=== PATIENT | female | born 1945 | race Caucasian/White ===

== ENCOUNTER 2016-07-30 10:59 | Emergency (ER) | payer BC, MEDICARE ==
[~2016-07-30] VITALS: Ht 160 cm; Wt 74.3 kg
[~2016-07-30 10:59] MED LIST: ACET650T59 PO; ASPI-611 PO; CALC-494 PO; FISH1CAP29 PO; FLAX100016 PO; GLUC1CAP25 PO; MULT1CAP47 PO; ONDA4TAB7 PO; PROM25SU44 RC
[2016-07-30 11:02] VITALS: Ht 160 cm; Wt 74.3 kg
--- OUTSIDE RECORDS SUMMARY | 2016-07-30 11:03 | XMS REPORT | Referral Summary ---
Author Author [facility], Family Medicine Organization [facility] Address Unknown Phone Unavailable Care Team Providers Care Volleyball Assembler Name Role Phone Nadir Mena Primary Care Physician [phone] Encounter Date(s): 06/23/16 - 06/23/16 [facility] [place], [address] [place] [address] Discharge Diagnosis: Acute recurrent maxillary sinusitis Discharge Disposition: 01-Home or Self Care Attending Physician: Concepcion Mckeon APRN Admitting Physician: Concepcion Mckeon APRN Vital Signs Most recent to 1 oldest [Reference Range]: Temperature Tympanic 36.7 degC [36.6-38.1 degC] (06/23/16 10:00 AM) Peripheral Pulse 82 bpm Rate [60-100 bpm] (06/23/16 10:00 AM) Blood Pressure 136/80 mmHg [90-140/60-90 mmHg] (06/23/16 10:00 AM) SpO2 96 % (06/23/16 10:00 AM) Problem List Condition Effective Dates Status Health Status Informant Bronchitis(Confirmed Active ) Chest Active pain(Confirmed) Chicken Active pox(Confirmed) T12 compression Active fracture(Confirmed) Edema(Confirmed) Active Migraine Active headaches(Confirmed) 1 Mitral Active regurgitation(Confir med) Obesity(Confirmed) Active patient Osteoarthritis(Confi Active rmed) Osteoporosis(Confirm Active ed) Palpitations(Confirm Active ed) Postmenopausal(Confi Active rmed) Mild pulmonary Active hypertension(Confirm ed) Benign skin lesion Active of forehead(Confirmed) 1associated with Allergies, Adverse Reactions, Alerts Substance Reaction Severity Status HYDROcodone Active oxyCODONE Active Medications Aspir 81 mg, Oral, Daily, 0 Refill(s) Start Date: 10/13/13 Status: Ordered atorvastatin 10 mg oral tablet 10 mg 1 tabs, Oral, Daily, # 90 tabs, 0 Refill(s), Pharmacy: [facility] # [id number], 1 tabs Oral Daily Start Date: 05/08/16 Status: Ordered Augmentin 875 mg-125 mg oral tablet 1 tabs, Oral, BID, X 10 days, # 20 tabs, 0 Refill(s), Pharmacy: [facility] #[id number] Start Date: 06/23/16 Stop Date: 07/03/16 Status: Ordered Calcium 600+D tabs, Oral, TID, 0 Refill(s) Start Date: 10/13/13 Status: Ordered Fish Oil 1000 mg oral capsule 1 caps, Oral, Daily, 0 Refill(s) Start Date: 10/13/13 Status: Ordered Flax Seed Oil 1 caps, Oral, Daily, 0 Refill(s) Start Date: 10/13/13 Status: Ordered ibuprofen 200 mg oral tablet 1 tabs, Oral, q6hr, as needed for fever, # 120 tabs, 0 Refill(s) Start Date: 10/13/13 Status: Ordered multivitamins oral capsule 1 caps, Oral, Daily, # 30 caps, 0 Refill(s) Start Date: 10/13/13 Status: Ordered triamterene-hydrochlorothiazide 37.5 mg-25 mg oral capsule See Instructions, TAKE ONE CAPSULE BY MOUTH DAILY, # 90 caps, 1 Refill(s), eRx: [facility] #[id number] Start Date: 05/05/16 Status: Ordered Results No data available for this section Immunizations Given and Recorded Vaccine Date Status Refusal Reason tetanus/diphth/pertuss (Tdap) adult/adol 01/11/13 Recorded pneumococcal 13-valent conjugate vaccine1 01/11/13 Given pneumococcal 23-polyvalent vaccine 01/11/13 Given tetanus-diphth toxoids (Td) adult/adol 07/07/95 Recorded zoster vaccine live 12/18/09 Recorded 1Result Comment: [01/10/2015 Uncharted] Uploaded in Error - CC Procedures Procedure Date Related Diagnosis Body Site Knee replacement - L TKA 03/12/11 Kyphoplasty1 09/2009 S/p breast biopsy 1986 Back surgery Carpal tunnel release Cataract extraction S/p bunionectomy S/P tubal ligation 1sledding accident 04/2009 Social History Social History Type Response Smoking Status Never smoker Assessment and Plan Extracted from: Title: Office Visit Note Author: Concepcion Mckeon APRN Date: 06/23/16 Assessment/Plan Acute recurrent maxillary sinusitis Will begin Augmentin 875/125 mgtwice a day for 10 days. Mucinex for congestion. Warm compresses to the sinuses. Drink plenty of fluids. Note was written for work. Call or return if worsening symptoms chills or fever. Ordered: Office Visit Level 3 Est 80592
--- OUTSIDE RECORDS SUMMARY | 2016-07-30 11:03 | XMS REPORT | Referral Summary ---
Author Organization Unknown Address Unknown Phone Unavailable Care Team Providers Care Applications Project Manager Name Role Phone Nadir Mena Primary Care Physician [phone] Encounter VC Date(s): 08/07/14 - 08/07/14 [facility], [place], Family [address] [place] [id number] Discharge Diagnosis: Mitral regurgitation Discharge Diagnosis: Mild pulmonary hypertension Discharge Diagnosis: Benign skin lesion of forehead Discharge Diagnosis: Osteoarthritis Discharge Disposition: Home or Self Care Attending Physician: Artur Mena MD Admitting Physician: Artur Mena MD Vital Signs Most recent to 1 oldest [Reference Range]: Peripheral Pulse 84 bpm Rate [60-100 bpm] (08/07/14 2:27 PM) Blood Pressure 128/80 mmHg [90-140/60-90 mmHg] (08/07/14 2:27 PM) Problem List Condition Effective Dates Status Health Status Informant Bronchitis(Confirmed Active ) Chest Active pain(Confirmed) Chicken Active pox(Confirmed) T12 compression Active fracture(Confirmed) Edema(Confirmed) Active Migraine Active headaches(Confirmed) 1 Mitral Active regurgitation(Confir med) Osteoarthritis(Confi Active rmed) Osteoporosis(Confirm Active ed) Palpitations(Confirm Active ed) Postmenopausal(Confi Active rmed) Mild pulmonary Active hypertension(Confirm ed) Benign skin lesion Active of forehead(Confirmed) 1associated with Allergies, Adverse Reactions, Alerts Substance Reaction Severity Status HYDROcodone Active oxyCODONE Active Medications Aspir 81 mg, Oral, Daily, 0 Refill(s) Start Date: 10/13/13 Status: Ordered Calcium 600+D tabs, Oral, TID, 0 Refill(s) Start Date: 10/13/13 Status: Ordered Fish Oil 1000 mg oral capsule 1 caps, Oral, Daily, 0 Refill(s) Start Date: 10/13/13 Status: Ordered Flax Seed Oil 1 caps, Oral, Daily, 0 Refill(s) Start Date: 10/13/13 Status: Ordered glucosamine 500 mg oral tablet 1 tabs, Oral, TID, # 90 tabs, 0 Refill(s) Start Date: 10/13/13 Status: Ordered ibuprofen 200 mg oral tablet 1 tabs, Oral, q6hr, as needed for fever, # 120 tabs, 0 Refill(s) Start Date: 10/13/13 Status: Ordered multivitamins oral capsule 1 caps, Oral, Daily, # 30 caps, 0 Refill(s) Start Date: 10/13/13 Status: Ordered triamterene-hydrochlorothiazide 37.5 mg-25 mg oral capsule See Instructions, TAKE 1 CAPSULE BY MOUTH EVERY DAY., # 90 tabs, 3 Refill(s), Pharmacy: [facility] #[id number] Special Instructions: TAKE 1 CAPSULE BY MOUTH EVERY DAY. Start Date: 08/07/14 Status: Ordered Results No data available for this section Immunizations Vaccine Date Refusal Reason tetanus/diphth/pertuss (Tdap) adult/adol 01/11/13 pneumococcal 13-valent conjugate vaccine 01/11/13 tetanus-diphth toxoids (Td) adult/adol 07/07/95 zoster vaccine live 12/18/09 Procedures Procedure Date Related Diagnosis Body Site Knee replacement - L TKA 03/12/11 Kyphoplasty1 09/2009 S/p breast biopsy 1986 Back surgery Carpal tunnel release Cataract extraction S/p bunionectomy S/P tubal ligation 1sledding accident 04/2009 Social History Social History Type Response Smoking Status Never smoker Assessment and Plan Extracted from: Title: Ambulatory Patient Education Author: Artur Mena MD Date: Family Medicine Arthritis, Nonspecific Arthritis is inflammation of a joint. This usually means pain, redness, warmth or swelling are present. One or more joints may be involved. There are a number of types of arthritis. Your caregiver may not be able to tell what type of arthritis you have right away. CAUSES The most common cause of arthritis is the wear and tear on the joint ( osteoarthritis ). This causes damage to the cartilage, which can break down over time. The knees, hips, back and neck are most often affected by this type of arthritis. Other types of arthritis and common causes of joint pain include: Sprains and other injuries near the joint. Sometimes minor sprains and injuries cause pain and swelling that develop hours later. Rheumatoid arthritis. This affects hands, feet and knees. It usually affects both sides of your body at the same time. It is often associated with chronic ailments, fever, weight loss and general weakness. Crystal arthritis. Gout and pseudo gout can cause occasional acute severe pain, redness and swelling in the foot, ankle, or knee. Infectious arthritis. Bacteria can get into a joint through a break in overlying skin. This can cause infection of the joint. Bacteria and viruses can also spread through the blood and affect your joints. Drug, infectious and allergy reactions. Sometimes joints can become mildly painful and slightly swollen with these types of illnesses. SYMPTOMS Pain is the main symptom. Your joint or joints can also be red, swollen and warm or hot to the touch. You may have a fever with certain types of arthritis, or even feel overall ill. The joint with arthritis will hurt with movement. Stiffness is present with some types of arthritis. DIAGNOSIS Your caregiver will suspect arthritis based on your description of your symptoms and on your exam. Testing may be needed to find the type of arthritis: Blood and sometimes urine tests. X-ray tests and sometimes CT or MRI scans. Removal of fluid from the joint (arthrocentesis ) is done to check for bacteria, crystals or other causes. Your caregiver (or a specialist) will numb the area over the joint with a local anesthetic, and use a needle to remove joint fluid for examination. This procedure is only minimally uncomfortable. Even with these tests, your caregiver may not be able to tell what kind of arthritis you have. Consultation with a specialist (playback operator ) may be helpful. TREATMENT Your caregiver will discuss with you treatment specific to your type of arthritis. If the specific type cannot be determined, then the following general recommendations may apply. Treatment of severe joint pain includes: Rest. Elevation. Anti-inflammatory medication (for example, ibuprofen) may be prescribed. Avoiding activities that cause increased pain. Only take sgkk-mdu-cuiqgdv or prescription medicines for pain and discomfort as recommended by your caregiver. Cold packs over an inflamed joint may be used for 10 to 15 minutes every hour. Hot packs sometimes feel better, but do not use overnight. Do not use hot packs if you are diabetic without your caregiver's permission. A cortisone shot into arthritic joints may help reduce pain and swelling. Any acute arthritis that gets worse over the next 1 to 2 days needs to be looked at to be sure there is no joint infection. Long-term arthritis treatment involves modifying activities and lifestyle to reduce joint stress jarring. This can include weight loss. Also, exercise is needed to nourish the joint cartilage and remove waste. This helps keep the muscles around the joint strong. HOME CARE INSTRUCTIONS Do not take aspirin to relieve pain if gout is suspected. This elevates uric acid levels. Only take mzlq-aka-hivdknq or prescription medicines for pain, discomfort or fever as directed by your caregiver. Rest the joint as much as possible. If your joint is swollen, keep it elevated. Use crutches if the painful joint is in your leg. Drinking plenty of fluids may help for certain types of arthritis. Follow your caregiver's dietary instructions. Try low-impact exercise such as: Swimming. Water aerobics. Biking. Walking. Morning stiffness is often relieved by a warm shower. Put your joints through regular fmvsr-ks-iupavk. SEEK MEDICAL CARE IF: You do not feel better in 24 hours or are getting worse. You have side effects to medications, or are not getting better with treatment. SEEK IMMEDIATE MEDICAL CARE IF: You have a fever. You develop severe joint pain, swelling or redness. Many joints are involved and become painful and swollen. There is severe back pain and/or leg weakness. You have loss of bowel or bladder control. Document Released: 05/21/2005 Document Revised: 07/05/2012 Document Reviewed: [facility] Patient Information 2014 [employer]. Mitral Valve Prolapse The mitral valve is located between the top and bottom parts of the heart on the left side. A mitral valve prolapse (MVP) is an abnormal bulging of 1 or both of the 2 mitral leaflets. The valve bulges into the top chamber (atrium ) of the heart when the bottom chamber (ventricle ) squeezes or contracts. MVP is more common in females. It is an inherited problem and is usually not found until adolescence. It is not harmful and rarely needs other treatment. PROBLEMS MAY INCLUDE: Chest pain. Palpitations. Anxiety. Panic attacks. Stroke, rarely. HOME CARE INSTRUCTIONS Taking antibiotics before a dental or other medical procedure is no longer routine. Consult with your caregiver. Exercise as your caregiver instructs. Discuss cardiac risk factors associated with MVP with your caregiver. SEEK IMMEDIATE MEDICAL CARE IF: You develop frequent episodes of chest pain or an irregular heartbeat. You faint or pass out. You have severe chest pain or shortness of breath. You develop palpitations with weakness or dizziness. You have difficulty with vision or swallowing or weakness or numbness on one side of your body. MAKE SURE YOU: Understand these instructions. Will watch your condition. Will get help right away if you are not doing well or get worse. Document Released: 04/10/2001 Document Revised: 07/05/2012 Document Reviewed: [facility] Patient Information 2014 [employer] [facility]. Immunology Eczema Eczema, also called atopic dermatitis, is a skin disorder that causes inflammation of the skin. It causes a red rash and dry, scaly skin. The skin becomes very itchy. Eczema is generally worse during the cooler winter months and often improves with the warmth of summer. Eczema usually starts showing signs in infancy. Some children outgrow eczema, but it may last through adulthood. CAUSES The exact cause of eczema is not known, but it appears to run in families. People with eczema often have a family history of eczema, allergies, asthma, or hay fever. Eczema is not contagious. Flare-ups of the condition may be caused by: Contact with something you are sensitive or allergic to. Stress. SIGNS AND SYMPTOMS Dry, scaly skin. Red, itchy rash. Itchiness. This may occur before the skin rash and may be very intense. DIAGNOSIS The diagnosis of eczema is usually made based on symptoms and medical history. TREATMENT Eczema cannot be cured, but symptoms usually can be controlled with treatment and other strategies. A treatment plan might include: Controlling the itching and scratching. Use gggt-olq-chsmcma antihistamines as directed for itching. This is especially useful at night when the itching tends to be worse. Use dhfq-siy-kqmztqz steroid creams as directed for itching. Avoid scratching. Scratching makes the rash and itching worse. It may also result in a skin infection (impetigo ) due to a break in the skin caused by scratching. Keeping the skin well moisturized with creams every day. This will seal in moisture and help prevent dryness. Lotions that contain alcohol and water should be avoided because they can dry the skin. Limiting exposure to things that you are sensitive or allergic to ( allergens ). Recognizing situations that cause stress. Developing a plan to manage stress. HOME CARE INSTRUCTIONS Only take uyeg-qqe-barxsrd or prescription medicines as directed by your health care provider. Do not use anything on the skin without checking with your health care provider. Keep baths or showers short (5 minutes) in warm (not hot) water. Use mild cleansers for bathing. These should be unscented. You may add nonperfumed bath oil to the bath water. It is best to avoid soap and bubble bath. Immediately after a bath or shower, when the skin is still damp, apply a moisturizing ointment to the entire body. This ointment should be a petroleum ointment. This will seal in moisture and help prevent dryness. The thicker the ointment, the better. These should be unscented. Keep fingernails cut short. Children with eczema may need to wear soft gloves or mittens at night after applying an ointment. Dress in clothes made of cotton or cotton blends. Dress lightly, because heat increases itching. A child with eczema should stay away from anyone with fever blisters or cold sores. The virus that causes fever blisters (herpes simplex ) can cause a serious skin infection in children with eczema. SEEK MEDICAL CARE IF: Your itching interferes with sleep. Your rash gets worse or is not better within 1 week after starting treatment. You see pus or soft yellow scabs in the rash area. You have a fever. You have a rash flare-up after contact with someone who has fever blisters. Document Released: 04/10/2001 Document Revised: 02/01/2014 Document Reviewed: [facility] Patient Information 2014 [facility]. No follow up information was provided. Extracted from: Title: Office Visit Note Author: Artur Mena MD Date: 08/07/14 Assessment/Plan Benign skin lesion of forehead suggest a trial of cortison-10 to the lesion and if not resolved consult Derm. Ordered: Office Visit Level 4 Est 31082 Mild pulmonary hypertension Continue with the current medications and a follow up with Dr Montgomery. Will get lab Ordered: Office Visit Level 4 Est 99870 Mitral regurgitation Ordered: Office Visit Level 4 Est 62163 Osteoarthritis Ordered: Office Visit Level 4 Est 47368 Orders: triamterene-hydrochlorothiazide, See Instructions, TAKE 1 CAPSULE BY MOUTH EVERY DAY., # 90 tabs, 3 Refill(s), Pharmacy: [facility] #[id number] Future Scheduled TestsReferral* Return to Clinic 02/21/14 12:59 PM Referrals to Other Providers Referred by: Tk Whitehead MD
--- OUTSIDE RECORDS SUMMARY | 2016-07-30 11:03 | XMS REPORT | Referral Summary ---
Author Author [facility], Family Medicine Organization [facility] Address Unknown Phone Unavailable Care Team Providers Care Manager Production Name Role Phone Nadir Mena Primary Care Physician [phone] Encounter VC Date(s): 12/26/14 - 12/26/14 [facility] [place], [address] [place] [address] Discharge Diagnosis: Acute maxillary sinusitis Discharge Disposition: 01-Home or Self Care Attending Physician: Concepcion Mckeon APRN Admitting Physician: Concepcion Mckeon APRN Referring Physician: Artur Mena MD Vital Signs Most recent to 1 oldest [Reference Range]: Temperature Tympanic 36.7 degC [36.6-38.1 degC] (12/26/14 10:41 AM) Peripheral Pulse 75 bpm Rate [60-100 bpm] (12/26/14 10:41 AM) Blood Pressure 126/68 mmHg [90-140/60-90 mmHg] (12/26/14 10:41 AM) SpO2 98 % (12/26/14 10:41 AM) Problem List Condition Effective Dates Status [...] DAY., # 90 tabs, 3 Refill(s), Pharmacy: [facility] #[id number] Start Date: 08/07/14 Status: Ordered Results No data available for this section Immunizations Vaccine Date Refusal Reason tetanus/diphth/pertuss (Tdap) adult/adol 01/11/13 pneumococcal 23-polyvalent vaccine 01/11/13 tetanus-diphth toxoids (Td) adult/adol 07/07/95 zoster vaccine live 12/18/09 Procedures Procedure Date Related Diagnosis Body Site Knee replacement - L TKA 03/12/11 Kyphoplasty1 09/2009 S/p breast biopsy 1986 Back surgery Carpal tunnel release Cataract extraction S/p bunionectomy S/P tubal ligation 1sledding accident 04/2009 Social History Social History Type Response Smoking Status Never smoker Assessment and Plan No data available for this section
--- OUTSIDE RECORDS SUMMARY | 2016-07-30 11:03 | XMS REPORT | Referral Summary ---
Author Author [facility], Sleep [facility] Organization [facility], [place] Address Unknown Phone Unavailable Care Team Providers Care Cafe Lead Name Role Phone Nadir Mena Primary Care Physician [phone] Encounter VC Date(s): 01/18/15 - 01/18/15 [facility], [facility] [address] [facility], [address] [address] Discharge Disposition: 01-Home or Self Care Attending Physician: Julius Mitchell MD Admitting Physician: Julius Mitchell MD Referring Physician: Julius Mitchell MD Vital Signs No data available for this section Problem List Condition Effective Dates Status Health [...] 0 Refill(s) Start Date: 10/13/13 Status: Ordered Promethazine VC with Codeine oral syrup See Instructions, as needed for cough, 5-10 mL Oral q4-6hr, # 240 mL, 0 Refill(s ) Start Date: 01/02/15 Status: Ordered triamterene-hydrochlorothiazide 37.5 mg-25 mg oral capsule See Instructions, TAKE 1 CAPSULE BY MOUTH EVERY DAY., # 90 tabs, 3 Refill(s), Pharmacy: [facility] #[id number] Start Date: 08/07/14 Status: Ordered Results No [...] Smoking Status Never smoker Assessment and Plan Future Scheduled TestsReferral* Return to Clinic 02/21/14 12:59 PM Referrals to Other Providers Referred by: Tk Whitehead MD
--- OUTSIDE RECORDS SUMMARY | 2016-07-30 11:03 | XMS REPORT | Referral Summary ---
Author Author [facility], Sleep [place] Organization [facility], [place] Address Unknown Phone Unavailable Care Team Providers Care Blade Operator Name Role Phone Nadir Mena Primary Care Physician [phone] Encounter VC Date(s): 01/18/15 - 01/18/15 [facility], [facility] [address] [facility], [address] [address] Discharge Disposition: 01-Home or Self Care Attending [...] DAY., # 90 tabs, 3 Refill(s), Pharmacy: [facility] #[id number] Start Date: 08/07/14 Status: Ordered Results No [...]
--- OUTSIDE RECORDS SUMMARY | 2016-07-30 11:04 | XMS REPORT | Referral Summary ---
Author Author [facility], [facility] Medicine Organization [facility] Address Unknown Phone Unavailable Care Team Providers Care Oim Consultant Name Role Phone Nadir Mena Primary Care Physician [phone] Encounter VC Date(s): 05/15/16 - 05/15/16 [facility], [address] [place] [address]- Discharge Diagnosis: CVA tenderness Discharge Disposition: 01-Home or Self Care Attending Physician: Concepcion Mckeon APRN Vital Signs Most recent to 1 oldest [Reference Range]: Temperature Tympanic 36.5 degC [36.6-38.1 degC] *LOW* (05/15/16 10:57 AM) Peripheral Pulse 72 bpm Rate [60-100 bpm] (05/15/16 10:57 AM) Blood Pressure 130/80 mmHg [90-140/60-90 mmHg] (05/15/16 10:57 AM) Problem List Condition Effective Dates Status [...] Daily, # 90 tabs, 0 Refill(s), [facility] [id number], 1 tabs Oral Daily Start Date: 05/08/16 Status: Ordered Calcium 600+D tabs, Oral, TID, 0 Refill(s) Start Date: 10/13/13 Status: Ordered Cipro 500 mg oral tablet 500 mg 1 tabs, Oral, q12hr, X 10 days, # 20 tabs, 0 Refill(s), Pharmacy: [facility] #[id number], 1 tabs Oral q12hr,x10 days Start Date: 05/15/16 Stop Date: 05/25/16 Status: Ordered Fish Oil 1000 mg oral capsule 1 caps, Oral, Daily, 0 Refill(s) Start Date: 10/13/13 Status: Ordered Flax Seed Oil 1 caps, Oral, Daily, 0 Refill(s) Start Date: 10/13/13 Status: Ordered ibuprofen 200 mg oral tablet 1 tabs, Oral, q6hr, as needed for fever, # 120 tabs, 0 Refill(s) Start Date: 10/13/13 Status: Ordered Mobic 7.5 mg oral tablet 7.5 mg 1 tabs, Oral, BID, # 30 tabs, 0 Refill(s), Pharmacy: [facility] # [id number], 1 tabs Oral BID Start Date: 04/10/16 Status: Ordered multivitamins oral capsule 1 caps, Oral, Daily, # 30 caps, 0 Refill(s) Start Date: 10/13/13 Status: Ordered triamterene-hydrochlorothiazide 37.5 mg-25 mg oral capsule See Instructions, TAKE ONE CAPSULE BY MOUTH DAILY, # 90 caps, 1 Refill(s), eRx: [facility] #[id number] Start Date: 05/05/16 Status: Ordered Results Urinalysis Most recent to 1 oldest [Reference Range]: UA Color Yellow (05/15/16 11:13 AM) UA Appear Clear (05/15/16 11:13 AM) UA pH [5.0-8.0] 7.5 (05/15/16 11:13 AM) UA Leuk Est Pos 1+ [Negative] *ABN* (05/15/16 11:13 AM) UA Nitrite Negative [Negative] (05/15/16 11:13 AM) UA Protein Negative [Negative] (05/15/16 11:13 AM) UA Glucose Negative [Negative] (05/15/16 11:13 AM) UA Ketones Negative [Negative] (05/15/16 11:13 AM) UA Urobilinogen 0.2 mg/dL [<=1.0 mg/dL] (05/15/16 11:13 AM) UA Bili [Negative] Negative (05/15/16 11:13 AM) UA Blood [Negative] Negative (05/15/16 11:13 AM) UA Spec Grav 1.020 [1.003-1.030] (05/15/16 11:13 AM) Type Voided (05/15/16 11:13 AM) UA WBC [0-4] 2-5 (05/15/16 11:13 AM) UA RBC [0-2] 0-2 (05/15/16 11:13 AM) Epithelial Cells 5-10 (05/15/16 11:13 AM) UA Bacteria Rare (05/15/16 11:13 AM) Immunizations Given and Recorded Vaccine Date Status [...] from: Title: Office Visit Note Author: Concepcion Mckoen APRN Date: 05/15/16 Assessment/Plan CVA tenderness urinalysisUA ordered. Leukocyte Estrace noted. Will await culture, in the interim begin Cipro 500 mg twice a day for 10 days. Patient declined offer pain medication. Will use moist heatand Advil for pain relief. Drink plenty of fluids. Call if any problems in the interim especially fever or chills. Recheck on Thursdayunless problems sooner Ordered: Office Visit Level 3 Est 20418 Dysuria
--- OUTSIDE RECORDS SUMMARY | 2016-07-30 11:04 | XMS REPORT | Referral Summary ---
Author Author [facility] Organization [facility] Address Unknown Phone Unavailable Care Team Providers Care Precast Concrete Ironworker Name Role Phone Nadir Mena Primary Care Physician [phone] Encounter VC Date(s): 01/02/16 - 01/02/16 [facility], Cardiology [address] [place] [address] [place] [address]- Discharge Diagnosis: Mild mitral insufficiency Discharge Diagnosis: Mild pulmonary hypertension Discharge Disposition: 01-Home or Self Care Attending Physician: Bill Varghese MD Admitting Physician: Bill Varghese MD Referring Physician: Artur Mena MD Vital Signs Most recent to 1 oldest [Reference Range]: Peripheral Pulse 64 bpm Rate [60-100 bpm] (01/02/16 11:27 AM) Blood Pressure 124/72 mmHg [90-140/60-90 mmHg] (01/02/16 11:27 AM) Problem List Condition Effective Dates Status [...] CAPSULE BY MOUTH DAILY, # 90 caps, eRx: [facility] #[id number], TAKE ONE CAPSULE BY MOUTH DAILY Start Date: 11/05/15 Status: Ordered Results No data available for [...] Extracted from: Title: Office Visit Note Author: Bill Varghese MD Date: 01/02/16 Assessment/Plan 1.Mild pulmonary hypertension 2.Mild mitral insufficiency Discussion: This patient seems to be very stable. I didn't make any changes in her therapy. I advised a follow-up visitperhaps in a year although this is somewhat negotiable in view of her stability.
--- OUTSIDE RECORDS SUMMARY | 2016-07-30 11:04 | XMS REPORT | Referral Summary ---
Author Author [facility], [facility] Organization [facility] Address Unknown Phone Unavailable Care Team Providers Care Coldfusion Name Role Phone Nadir Mena Primary Care Physician [phone] Encounter VC Date(s): 12/06/15 - 12/06/15 [facility], [address] [place] [id number]- Discharge Diagnosis: Headache Discharge Disposition: 01-Home or Self Care Attending Physician: Moncho Trent PA-C Admitting Physician: Moncho Trent PA-C Vital Signs Most recent to 1 oldest [Reference Range]: Temperature Tympanic 36.7 degC [36.6-38.1 degC] (12/06/15 5:47 PM) Peripheral Pulse 66 bpm Rate [60-100 bpm] (12/06/15 5:47 PM) Blood Pressure 140/88 mmHg [90-140/60-90 mmHg] (12/06/15 5:47 PM) SpO2 96 % (12/06/15 5:47 PM) Problem List Condition Effective Dates Status [...] BY MOUTH DAILY, # 90 caps, eRx: [facility] #[id number], TAKE ONE CAPSULE BY MOUTH DAILY Start [...]
--- OUTSIDE RECORDS SUMMARY | 2016-07-30 11:04 | XMS REPORT | Referral Summary ---
Author Author [facility] Organization [facility] Address Unknown Phone Unavailable Care Team Providers Care Optical Fabrication Technician Name Role Phone Nadir Mena Primary Care Physician [phone] Encounter VC Date(s): 03/27/15 - 03/27/15 [facility], Family [address] [place] [address]- Discharge Diagnosis: Well woman exam with routine gynecological exam Discharge Disposition: 01-Home or Self Care Attending Physician: Concepcion Mckeon APRN Admitting Physician: Concepcion Mckeon APRN Vital Signs Most recent to 1 oldest [Reference Range]: Peripheral Pulse 78 bpm Rate [60-100 bpm] (03/27/15 3:09 PM) Blood Pressure 126/70 mmHg [90-140/60-90 mmHg] (03/27/15 3:09 PM) Problem List Condition Effective Dates Status [...] DAY., # 90 tabs, 3 Refill(s), Pharmacy: [facility] #[id number] Start Date: 08/07/14 Status: Ordered Results No [...]
--- OUTSIDE RECORDS SUMMARY | 2016-07-30 11:04 | XMS REPORT | Referral Summary ---
Author Author [facility] Organization [facility] Address Unknown Phone Unavailable Care Team Providers Care Family Preservation Worker Name Role Phone Nadir Mena Primary Care Physician [phone] Encounter VC Date(s): 07/12/15 - 07/12/15 [facility] [address] [place] [address] Discharge Diagnosis: Acute upper respiratory infection Discharge Disposition: 01-Home or Self Care Attending Physician: Viky Nazario PA-C Admitting Physician: Viky Nazario PA-C Vital Signs Most recent to 1 oldest [Reference Range]: Peripheral Pulse 70 bpm Rate [60-100 bpm] (07/12/15 1:58 PM) Respiratory Rate 16 br/min [14-20 br/min] (07/12/15 1:58 PM) Blood Pressure 128/72 mmHg [90-140/60-90 mmHg] (07/12/15 1:58 PM) Problem List Condition Effective Dates Status [...] DAY., # 90 tabs, 3 Refill(s), Pharmacy: [facility] #[id number] Start Date: 08/07/14 Status: Ordered Results No [...] Extracted from: Title: Ambulatory Patient Education Author: Viky Nazario PA-C Date : 07/12/15 ENT Upper Respiratory Infection Most upper respiratory infections (URIs) are a viral infection of the air passages leading to the lungs. A URI affects the nose, throat, and upper air passages. The most common type of URI is nasopharyngitis and is typically referred to as "the common cold." URIs run their course and usually go away on their own. Most of the time, a URI does not require medical attention, but sometimes a bacterial infection in the upper airways can follow a viral infection. This is called a secondary infection. Sinus and middle ear infections are common types of secondary upper respiratory infections. Bacterial pneumonia can also complicate a URI. A URI can worsen asthma and chronic obstructive pulmonary disease (COPD). Sometimes, these complications can require emergency medical care and may be life threatening. CAUSES Almost all URIs are caused by viruses. A virus is a type of germ and can spread from one person to another. RISKS FACTORS You may be at risk for a URI if: You smoke. You have chronic heart or lung disease. You have a weakened defense (immune) system. You are very young or very old. You have nasal allergies or asthma. You work in crowded or poorly ventilated areas. You work in health care facilities or schools. SIGNS AND SYMPTOMS Symptoms typically develop 23 days after you come in contact with a cold virus. Most viral URIs last 710 days. However, viral URIs from the influenza virus (flu virus) can last 1418 days and are typically more severe. Symptoms may include: Runny or stuffy (congested) nose. Sneezing. Cough. Sore throat. Headache. Fatigue. Fever. Loss of appetite. Pain in your forehead, behind your eyes, and over your cheekbones (sinus pain). Muscle aches. DIAGNOSIS Your health care provider may diagnose a URI by: Physical exam. Tests to check that your symptoms are not due to another condition such as: Strep throat. Sinusitis. Pneumonia. Asthma. TREATMENT A URI goes away on its own with time. It cannot be cured with medicines, but medicines may be prescribed or recommended to relieve symptoms. Medicines may help: Reduce your fever. Reduce your cough. Relieve nasal congestion. HOME CARE INSTRUCTIONS Take medicines only as directed by your health care provider. Gargle warm saltwater or take cough drops to comfort your throat as directed by your health care provider. Use a warm mist humidifier or inhale steam from a shower to increase air moisture. This may make it easier to breathe. Drink enough fluid to keep your urine clear or pale yellow. Eat soups and other clear broths and maintain good nutrition. Rest as needed. Return to work when your temperature has returned to normal or as your health care provider advises. You may need to stay home longer to avoid infecting others. You can also use a face mask and careful hand washing to prevent spread of the virus. Increase the usage of your inhaler if you have asthma. Do not use any tobacco products, including cigarettes, chewing tobacco, or electronic cigarettes. If you need help quitting, ask your health care provider. PREVENTION The best way to protect yourself from getting a cold is to practice good hygiene. Avoid oral or hand contact with people with cold symptoms. Wash your hands often if contact occurs. There is no clear evidence that vitamin C, vitamin E, echinacea, or exercise reduces the chance of developing a cold. However, it is always recommended to get plenty of rest, exercise, and practice good nutrition. SEEK MEDICAL CARE IF: You are getting worse rather than better. Your symptoms are not controlled by medicine. You have chills. You have worsening shortness of breath. You have brown or red mucus. You have yellow or brown nasal discharge. You have pain in your face, especially when you bend forward. You have a fever. You have swollen neck glands. You have pain while swallowing. You have white areas in the back of your throat. SEEK IMMEDIATE MEDICAL CARE IF: You have severe or persistent: Headache. Ear pain. Sinus pain. Chest pain. You have chronic lung disease and any of the following: Wheezing. Prolonged cough. Coughing up blood. A change in your usual mucus. You have a stiff neck. You have changes in your: Vision. Hearing. Thinking. Mood. MAKE SURE YOU: Understand these instructions. Will watch your condition. Will get help right away if you are not doing well or get worse. This information is not intended to replace advice given to you by your health care provider. Make sure you discuss any questions you have with your health care provider. Document Released: 10/07/2001 Document Revised: 01/30/2015 Document Reviewed: ExitCare Patient Information 2015 [employer] [facility]. No follow up information was provided. Extracted from: Title: Office Visit Note- URI Author: Viky Nazario PA-C Date: 07/11 Assessment/Plan Acute upper respiratory infection D/w pt that this appears viral. Declined influenza testing. Has codeine cough medication at home. May take Mucinex DM during the day. May also try Flonase nasal spray to help with FERNANDEZ along with Tylenol. Also advised trying warm tea with honey. Call if no better by next week for abx. Rest and push fluids. Ordered: Office Visit Level 3 Est 45495
--- OUTSIDE RECORDS SUMMARY | 2016-07-30 11:04 | XMS REPORT | Referral Summary ---
Author Author [facility], [facility] Organization [facility] Address Unknown Phone Unavailable Care Team Providers Care Assistant Manager Airside Operations Name Role Phone Nadir Mena Primary Care Physician [phone] Encounter VC Date(s): 12/27/14 - 12/27/14 [facility], Cardiology [address] [place] [address] [place] [address]- Discharge Diagnosis: Mitral insufficiency Discharge Diagnosis: Pulmonary hypertension Discharge Diagnosis: Dyspnea Discharge Disposition: 01-Home or Self Care Attending Physician: Bill Varghese MD Admitting Physician: Bill Varghese MD Referring Physician: Artur Mena MD Vital Signs Most recent to 1 oldest [Reference Range]: Peripheral Pulse 84 bpm Rate [60-100 bpm] (12/27/14 10:05 AM) Blood Pressure 140/86 mmHg [90-140/60-90 mmHg] (12/27/14 10:05 AM) Problem List Condition Effective Dates Status [...] DAY., # 90 tabs, 3 Refill(s), Pharmacy: [facility] #[id number] Start Date: 08/07/14 Status: Ordered Results No [...] Visit Note Author: Bill Varghese MD Date: 12/27/14 Assessment/Plan 1.Pulmonary hypertension Ordered: Echo, 2-D + Doppler + Color Flow Oximetry - Nocturnal Study Return to Clinic 2.Mitral insufficiency Ordered: Echo, 2-D + Doppler + Color Flow Return to Clinic 3.Dyspnea Ordered: Echo, 2-D + Doppler + Color Flow Return to Clinic Referrals to Other Providers Referred by: Bill Varghese MD
--- OUTSIDE RECORDS SUMMARY | 2016-07-30 11:04 | XMS REPORT | Referral Summary ---
Author Author [facility], [facility] Organization [facility], [facility] Address Unknown Phone Unavailable Care Team Providers Care Production Counter Name Role Phone Nadir Mena Primary Care Physician [phone] Encounter VC Date(s): 01/04/15 - 01/04/15 [facility], [facility] [address] [facility], [address] [address] Discharge Disposition: 01-Home or Self Care Attending Physician: Julius Mitchell MD Admitting Physician: Julius Mitchell MD Referring Physician: Bill Varghese MD Vital Signs No data available for [...] DAY., # 90 tabs, 3 Refill(s), Pharmacy: [facility] #[id number] Start Date: 08/07/14 Status: Ordered Results No [...]
--- OUTSIDE RECORDS SUMMARY | 2016-07-30 11:04 | XMS REPORT | Referral Summary ---
Author Author [facility] Organization [facility] Address Unknown Phone Unavailable Care Team Providers Care Control Analyst Name Role Phone Nadir Mena Primary Care Physician [phone] Encounter VC Date(s): 01/05/15 - 01/05/15 [facility], [facility] [place] [address] [facility], [address] [address] Discharge Disposition: 01-Home or Self Care Attending Physician: Julius Mitchell MD Admitting Physician: Julius Mitchell MD Referring Physician: Artur Mena MD Vital Signs No data available for [...] DAY., # 90 tabs, 3 Refill(s), Pharmacy: [facility] #[id number] Start Date: 08/07/14 Status: Ordered Results No [...]
--- OUTSIDE RECORDS SUMMARY | 2016-07-30 11:04 | XMS REPORT | Referral Summary ---
Author Author [facility] Organization [facility] Address Unknown Phone Unavailable Care Team Providers Care Pct Name Role Phone Nadir Mena Primary Care Physician [phone] Encounter VC Date(s): 01/15/16 - 01/15/16 [facility] [address] [place] [address]- Discharge Diagnosis: Osteoarthritis Discharge Diagnosis: Migraine headaches Discharge Diagnosis: Mitral regurgitation Discharge Diagnosis: Mild pulmonary hypertension Discharge Disposition: 01-Home or Self Care Attending Physician: Artur Mena MD Admitting Physician: Artur Mena MD Vital Signs Most recent to 1 oldest [Reference Range]: Blood Pressure 130/90 mmHg [90-140/60-90 mmHg] (01/15/16 3:22 PM) Problem List Condition Effective Dates Status [...] BY MOUTH DAILY, # 90 caps, eRx: [facility] #[id number], TAKE ONE CAPSULE BY MOUTH DAILY Start Date: 11/05/15 Status: Ordered Results Urinalysis Most recent to 1 oldest [Reference Range]: UA Color Yellow (01/15/16 3:21 PM) UA Appear Clear (01/15/16 3:21 PM) UA pH [5.0-8.0] 5.5 (01/15/16 3:21 PM) UA Leuk Est Trace [Negative] *ABN* (01/15/16 3:21 PM) UA Nitrite Negative [Negative] (01/15/16 3:21 PM) UA Protein Negative [Negative] (01/15/16 3:21 PM) UA Glucose Negative [Negative] (01/15/16 3:21 PM) UA Ketones Negative [Negative] (01/15/16 3:21 PM) UA Urobilinogen 0.2 mg/dL [<=1.0 mg/dL] (01/15/16 3:21 PM) UA Bili [Negative] Negative (01/15/16 3:21 PM) UA Blood [Negative] Negative (01/15/16 3:21 PM) UA Spec Grav 1.010 [1.003-1.030] (01/15/16 3:21 PM) Type Clean Catch (01/15/16 3:21 PM) UA WBC [0-4] 0-2 (01/15/16 3:21 PM) Epithelial Cells 0-2 (01/15/16 3:21 PM) Immunizations Vaccine Date Refusal Reason tetanus/diphth/pertuss (Tdap) [...]
--- OUTSIDE RECORDS SUMMARY | 2016-07-30 11:04 | XMS REPORT | Referral Summary ---
Author Author [facility], [facility] Organization [facility], [facility] Address Unknown Phone Unavailable Care Team Providers Care Power Reactor Operator Name Role Phone Nadir Mena Primary Care Physician [phone] Encounter VC Date(s): 01/18/15 - 01/18/15 [facility], [facility] [address] [facility], [address] [address] Discharge Disposition: 01-Home or Self [...] DAY., # 90 tabs, 3 Refill(s), Pharmacy: [facility] #[id number] Start Date: 08/07/14 Status: Ordered Results No [...]
--- NOTE | 2016-07-30 11:25 | NUR ---
ROOM CHANGE TO EX 4 FOR PELVIC
[2016-07-30] MEDS ORDERED: ATOR10TA64 PO (11:26)
[2016-07-30] MEDS ORDERED: TRIA1CAP6 PO (11:26)
--- NOTE | 2016-07-30 11:26 | ERPDOC ---
Departure Disposition Decision Date: Jul 30, 2016 Disposition Decision Time: 11:35 Disposition: 01 DISCHARGED HOME, SELF-CARE Impression Impression Impression: Primary Impression: Hemorrhoids, internal, thrombosed Severity: Mild Condition: Stable Seen By: Physician only Referrals: OSKAR MENESES MD (Family) Patient Instructions: Hemorrhoids (ED) Problems/Meds/Labs Reviewed?: Yes Medications reviewed and manag: Yes Additional Instructions: Resume normal activity. Use Tucks pads to wipe for the next few days to help minimize further bleeding from the hemorrhoid. Recommend also putting on some homorrhoid cream such as Preparation H or Anusol to help it heal. Take stool softeners if necessary to prevent straining. Follow up with your doctor if not getting better. Follow up care ordered?: Yes Mental Status: Alert, Oriented HPI - Female General Chief Complaint: Female Urogenital Problems Stated Complaint: VAGINAL BLEEDING Time Seen by Provider: 11:14 Source: patient, family (daughter), RN notes reviewed, old records Exam Limitations: no limitations HPI - Female Initial Comments This patient comes in because she went to the bathroom to void at 1045 this morning and when she wiped there was bright red blood on the tissue. She looked in the bowl and the water was red. She did not have a bowel movement at that time but had one earlier today at about 0600. She did not have to strain at that time and it was not a large caliber stool. She has had hemorrhoids in the past but they are not active now. She does not have any dysuria or other urinary symptoms so she thinks that this blood may have come from the vagina. She has not had a hysterectomy. She went through menopause at age 41 and is [id number]. Occurred At: home Onset: Rapid Duration: 1/2 hour Pain Scale: Now: 0/10 Hx of Similar Symptoms: No Is Pt now?: No Hx Last Menstrual Period: NARESH Allergies: Coded Allergies: No Known Allergies (Unverified , 07/30/16) Past History Past Medical History Metabolic: hypertension Hx Echocardiogram: No GI: GERD Neurological: migraines (during ) Musculoskeletal: osteoarthritis Surgical History General: back (kyphoplasty), other (breast bx) Reproductive/: tubal ligation Joint: carpal tunnel Family History Family PMH: FOUND: other Vaccines Hx Influenza Vaccination: Yes (01/07) Hx Pneumococcal Vaccination: Yes Social History Substance Use Type: does not use Record Review Pertinent history updated: Yes Review of Systems Constitutional Constitutional: DENIES: appetite decrease, chills, dizziness, fever, weakness Eyes General: DENIES: pain Lids/Accessories: DENIES: erythema Vision: DENIES: blurring ENMT Ears: DENIES: pain Hearing: DENIES: hearing loss Balance: DENIES: vertigo Sinuses: DENIES: congestion, rhinorrhea Mouth/Throat: DENIES: sore throat Teeth: DENIES: pain Cardiovascular Cardiac: DENIES: chest pain Rhythm/Rate: DENIES: palpitations Vascular: DENIES: pedal edema, unilateral swelling Pulmonary Respiratory: DENIES: cough, dyspnea, sputum GI Upper Abdomen: DENIES: heartburn/indigestion, nausea, vomiting Lower Abdomen: DENIES: blood in stool, constipation, diarrhea General: DENIES: dysuria, hematuria Female: see HPI, DENIES: vaginal discharge : (Sab1), (5), para (4) Musculoskeletal General: DENIES: joint pain, pain Integumentary Skin: DENIES: itching, rash Neurological General: DENIES: headache, memory disturbances, seizures, syncope Psychiatric Psychiatric: DENIES: anxiety, depression Endocrine Endocrine: DENIES: heat/cold intolerance Hematologic/Lymphatic Hematologic/Lymphatic: DENIES: anemia, easy bruising Allergic/Immunological Allergic/Immunoligical: DENIES: hives All other Systems All Other Systems: Reviewed and Negative Physical Exam General General Nourishment: well nourished, well developed, appears stated age, no acute distress, adult General Body Habitus: well groomed Vitals and Pain First Documented Vital Signs Date Time Temp Pulse Resp B/P Pulse Ox O2 Delivery O2 Flow Rate FiO2 07/30/16 11:02 97.6 62 16 142/87 95 Room Air Weight: Kilograms: 74.300 Height (feet): 5 Height (inches): 3.00 Triage Pain Scale: RN VS reviewed by Provider: Yes Normal Exams: Head: Normocephalic w/o trauma Eyes: Pupils are PERRLA w/ EOMI, No scleral icterus, irritation, or foreign bodies noted ENMT: No facial trauma, nasal exudates, pharyngeal erythema, or exudates are noted Dental: No fractured, loose, or missing teeth noted Neck: Full range of motion, without adenopathy, JVD, bruits or thyromegaly Chest/Resp: Clear all singh, with good airflow, and symmetry bilaterally CV: Regular rate and rhythm, without murmur or gallop, Pulses 2+ all extremities, capillary refill, <2 seconds all ext., no pedal edema noted Abdomen: Bowel sounds positive, soft, non-tender, non-distended, no hepatosplenomegaly, masses or bruits noted : Vulva without rashes, or lesions, no exudate or bleeding, noted externally Musculoskeletal: No tenderness, or deformity noted, good range of motion, all extremities Integumentary: No rashes, hives, or bruising noted, hair and nails, without abnormality Neurologic: Patient is alert, and oriented, cranial nerves, motor/sensory/ cerebellar, exams w/o gross deficits, to observation Psychiatric: Patient exhibits, appropriate attention, emotion and affect Abdomen Rectal: FOUND: internal hemorrhoids (internal hemorrhoid noted when anal opening stretched open -- protruding down to just inside anal verge -- small but thrombosed with rupture and blood clot.), sphincter normal tone (brief) Comments no blood in vaginal vault or at urethral meatus Differential Diagnoses Considering: Other (ruptured hemorrhoid versus vaginal or urinary source of bleeding) Progress Progress Progress Source of bleeding identified. No treatment needed at this time. Will discharge with instructions. JENNIFER ROCKWELL MD Jul 30, 2016 11:26
--- NOTE | 2016-07-30 11:30 | NUR ---
PELVIC EXAM DONE BY DR Stella ROCKWELL. NO CULTURES TAKEN
[2016-07-30 12:00] VITALS: BP 142/87; PULSE 62; RESP 16; TEMP 97.6; O2SAT 95
--- NOTE | 2016-07-30 12:00 | NUR ---
DISMISSAL DISMISSAL INSTRCUTIONS TO PT AND FAMILY WITHOUT FURTHER QUESTIONS. PT LEFT DEPARTMENT AMBUALTORY
== END 2016-07-30 12:00 | disposition home or self-care (01) ==
LOC: ED 10:59
DX: K64.5 Perianal venous thrombosis (principal)